=== PATIENT | female | born 1965 | race Caucasian/White ===

== ENCOUNTER → 2016-10-20 | Outpatient (CLI) | payer OTHER ==
--- NOTE | 2016-10-20 13:31 | CPR ---
[f rep st] NONINVASIVE CARDIAC PROCEDURE REPORT DATE OF PROCEDURE: 10/20/2016 PROCEDURE PERFORMED: Exercise nuclear stress test. INDICATION: The patient is a 51-year-old female who presented to our office complaining of burning chest pain which lasted for hours, 6-8 weeks ago. Since then, she has had recurrent events which ar e not as severe. Her risk factors for coronary artery disease include a premature family history of coronary artery disease. Her brother was diagnosed with coronary artery disease at the age of 51. DESCRIPTION OF PROCEDURE: Consent was obtained, and the patient was placed on continuous telemetry. Her resting EKG revealed normal sinus rhythm with heart rate of 66, NH interval of 128, QRS durati on of 86, and a QTc of 420. She has a nonischemic EKG. The patient exercised on the treadmill for 12 minutes without any associated symptoms. She did deve lop [address] depression in the inferior leads with initial exertion. This recovered in the next 2 stages of exercise. In recovery, she then was noted to have [address] depression in the infe rior leads. Her blood pressure at rest was 100/80, with an oxygen saturation of 94%. Her blood pressure peaked at 156/60. PLAN: Positive exercise treadmill test. Await nuclear images. /[id number]/MODL
== END ==
LOC: FIMAGING 08:28
PROVIDERS: ATTEND Internal Medicine
DX: R07.9 Chest pain, unspecified (principal); R94.39 Abnormal result of other cardiovascular function study; R10.9 Unspecified abdominal pain; B19.20 Unspecified viral hepatitis C without hepatic coma; Z82.49 Family history of ischemic heart disease and other diseases of the circulatory system
CPT/HCPCS: 78452; 93017; A9500

== ENCOUNTER → 2016-10-21 | Outpatient (CLI) | payer OTHER | LOC: FIMAGING 08:40 | PROVIDERS: ATTEND Internal Medicine | DX: R10.9 Unspecified abdominal pain (principal); B19.20 Unspecified viral hepatitis C without hepatic coma; R07.9 Chest pain, unspecified; K22.8 Other specified diseases of esophagus; Z82.49 Family history of ischemic heart disease and other diseases of the circulatory system ==